=== PATIENT | female | born 1970 | race African-American/Black ===

== ENCOUNTER 2019-04-09 18:34 | Inpatient (IN) ==
[2019-04-09] MEDS ORDERED: ASPIRIN 325 MG TABLET PO STA (18:52)
[2019-04-09] MEDS ORDERED: NITROGLYCERIN 2% OINT 1 INCH/GM PACK TOP STA (18:52)
[2019-04-09] MEDS ORDERED: ONDANSETRON 4 MG/2 ML VIAL IV STA (18:52)
[2019-04-09] MEDS ORDERED: ALUM/MAG/SIMETH/LIDO VISC 1:1 30 ML BOTTLE PO STA (18:52)
[2019-04-09 19:20] LABS: Basophils % 0.4 % (0.0-0.8); Eosinophils % 0.4 % (0.00-10.9); Hematocrit 43.7 VOL% (35.7-47.0); Hemoglobin 14.4 GM/DL (12.0-16.0); Immature Granulocytes % 0.3 %; Immature Granulocytes Absolute 0.03 #; Lymphocytes # 3.1 10*3/uL (1.4-4.0); Mean Corpuscular Volume 85.5 FL (87-102); Mean Platelet Volume 12.2 FL (9.6-12.0); Monocytes % 6.3 % (1.7-12.7); Neutrophils % 58.6 % (38.7-73.9); Platelet Count 260 T/CUMM (130-400); Red Blood Count 5.11 MC/CUMM (3.8-5.5); Red Cell Distribution Width 11.8 % (9.3-17.3)
[2019-04-09 19:31] LABS: PT Patient Result 10.7 SECS
[2019-04-09 19:41] LABS: Alanine Aminotransferase 48 U/L (13-56); Albumin 3.5 G/DL (3.4-5.0); Alkaline Phosphatase 102 U/L (45-117); Aspartate Amino Transferase 29 U/L (0-37); Bilirubin,Total < 0.39 MG/DL (0.2-1.0); Blood Urea Nitrogen 11 MG/DL (7-18); Calcium 9.4 MG/DL (8.5-10.1); Glucose 464 MG/DL (74-106); Osmolality,Calculated 291.8 MOS/KG (273-304); Total Protein 6.5 G/DL (6.4-8.3)
[2019-04-09 19:48] LABS: Apearance,Urine CLEAR (Clear); Bilirubin,Urine Negative (Negative); Blood, Urine Small mg/dL (Negative); Glucose,Urine (UA) >=500 mg/dL (Negative); Ketones,Urine 5 mg/dL (Negative); Mucus,Urine Occasional /LPF (Occasional); Nitrite,Urine Negative (Negative); Protein,Urine Negative; RBC,Urine 2 /HPF (0-4); Squamous Epithelial Cell,Urine Occasional /HPF (0-10); Urine Color Yellow (Yellow); Urine Specific Gravity 1.037 (1.001-1.035); Urine Urobilinogen < 2.0 EU/DL (0.2-1.0); WBC,Urine 3 /HPF (0-6)
[2019-04-09] MEDS ORDERED: INSULIN REGULAR 100 UNIT/ML IV STA (19:59)
[2019-04-09] MEDS ORDERED: ENOXAPARIN 100 MG/ML SYRINGE SUBCUT STA (19:59)
[2019-04-09] MEDS ORDERED: METOPROLOL TARTRATE 25 MG TABLET PO STA (19:59)
[2019-04-09] MEDS ORDERED: MORPHINE 4 MG/1 ML VIAL IV PRN (22:16)
[2019-04-09] MEDS ORDERED: SODIUM CHLORIDE 0.9% 1,000 ML IV SCH (22:16)
[2019-04-09] MEDS ORDERED: ONDANSETRON 4 MG/2 ML VIAL IV PRN (22:16)
[2019-04-09] MEDS ORDERED: ZALEPLON 5 MG CAPSULE PO PRN (22:16)
[2019-04-09] MEDS ORDERED: DEXTROSE 50% 25 GM/50 ML VIAL IV PRN (22:16)
[2019-04-09] MEDS ORDERED: GLUCAGON 1 MG VIAL IM PRN (22:16)
[2019-04-09] MEDS ORDERED: BISACODYL 5 MG TABLET PO PRN (22:16)
[2019-04-09] MEDS ORDERED: NITROGLYCERIN SL 0.4 MG TABLET SL PRN (22:16)
[2019-04-09] MEDS: ONDANSETRON 4 MG/2 ML VIAL IV PRN (23:34)
[2019-04-10] MEDS: INSULIN REGULAR 100 UNIT/ML SUBCUT SCH ×4 (00:35→17:02)
[2019-04-10 01:02] LABS: Basophils % 0.2 % (0.0-0.8); Eosinophils % 0.2 % (0.00-10.9); Hematocrit 37.6 VOL% (35.7-47.0); Hemoglobin 12.5 GM/DL (12.0-16.0); Immature Granulocytes % 0.3 %; Immature Granulocytes Absolute 0.03 #; Lymphocytes # 2.9 10*3/uL (1.4-4.0); Lymphocytes % 30.5 % (21.3-54.2); Mean Corpuscular HGB Conc 33.2 GM/DL (32-36); Mean Corpuscular Volume 85.6 FL (87-102); Mean Platelet Volume 12.5 FL (9.6-12.0); Monocytes % 6.7 % (1.7-12.7); Neutrophils % 62.1 % (38.7-73.9); Platelet Count 237 T/CUMM (130-400); Red Blood Count 4.39 MC/CUMM (3.8-5.5); Red Cell Distribution Width 11.8 % (9.3-17.3); White Blood Count 9.4 T/CUMM (4-12)
[2019-04-10] MEDS ORDERED: PNEUMOCOCCAL VACCINE (23 VALENT) 0.5 ML VIAL IM ONE (01:06)
[2019-04-10 01:58] LABS: Calcium 8.4 MG/DL (8.5-10.1); Osmolality,Calculated 293.5 MOS/KG (273-304); Risk Ratio 4.13; Thyroid Stimulating Hormone 1.68 uIU/ml (0.358-3.74); VLDL CHOLESTEROL 43.4 MG/DL
[2019-04-10 08:36] LABS: Troponin I 0.87 NG/ML (0.00-0.045)
[2019-04-10] MEDS: ENOXAPARIN 100 MG/ML SYRINGE SUBCUT SCH ×2 (09:37→20:28)
[2019-04-10] MEDS: ASPIRIN EC 81 MG TABLET PO SCH (09:37)
[2019-04-10] MEDS ORDERED: POTASSIUM CHLORIDE RIDER 10 MEQ in PREMIX 1 EACH IV PRN (10:23)
[2019-04-10] MEDS ORDERED: diphenhydrAMINE CAP 25 MG CAPSULE PO ONE (10:23)
[2019-04-10] MEDS ORDERED: MAGNESIUM SULF RIDER 2 GM in PREMIX 1 EACH IV PRN (10:23)
[2019-04-10] MEDS ORDERED: DIAZEPAM 5 MG TABLET PO ONE (10:23)
[2019-04-10] MEDS ORDERED: HEPARIN/NACL 0.9% 2 UNITS/ML 1,000 ML IV ONE (10:30)
[2019-04-10] MEDS ORDERED: LIDOCAINE 1% 20 ML VIAL ONE (10:30)
[2019-04-10] MEDS ORDERED: NITROGLYCERIN DRIP 0 MG/0 ML BOTTLE IV ONE (10:30)
[2019-04-10] MEDS ORDERED: VERAPAMIL 5 MG/2 ML VIAL ONE ×2 (10:30→11:10)
[2019-04-10] MEDS ORDERED: HYDROmorphone 2 MG/1 ML VIAL ONE (11:07)
[2019-04-10] MEDS ORDERED: MIDAZOLAM 2 MG/2 ML VIAL ONE (11:07)
[2019-04-10] MEDS ORDERED: NITROGLYCERIN DRIP 50 MG/250 ML BOTTLE IV ONE (11:10)
[2019-04-10] MEDS ORDERED: DEXTROSE 10% 250 ML BAG IV PRN (11:21)
[2019-04-10] MEDS: ONDANSETRON 4 MG/2 ML VIAL IV PRN (12:34)
[2019-04-10] MEDS: ROSUVASTATIN 20 MG TABLET PO SCH (20:28)
[2019-04-10] MEDS ORDERED: ACETAMINOPHEN 325 MG TABLET PO PRN (23:43)
[2019-04-10] MEDS ORDERED: ACETAMINOPHEN 500 MG TABLET PO ONE (23:43)
[2019-04-10] MEDS ORDERED: ACETAMINOPHEN 500 MG TABLET ONE (23:47)
[2019-04-11] MEDS: INSULIN REGULAR 100 UNIT/ML SUBCUT SCH ×4 (00:52→17:22)
[2019-04-11 05:33] LABS: Basophils % 0.4 % (0.0-0.8); Eosinophils # 0.1 10*3/uL (0.0-0.87); Eosinophils % 0.9 % (0.00-10.9); Hemoglobin 11.1 GM/DL (12.0-16.0); Immature Granulocytes % 0.2 %; Immature Granulocytes Absolute 0.02 #; Lymphocytes # 4.5 10*3/uL (1.4-4.0); Lymphocytes % 54.3 % (21.3-54.2); Mean Corpuscular HGB Conc 32.6 GM/DL (32-36); Mean Corpuscular Volume 87.6 FL (87-102); Mean Platelet Volume 12.9 FL (9.6-12.0); Monocytes % 5.2 % (1.7-12.7); Platelet Count 172 T/CUMM (130-400); Red Blood Count 3.88 MC/CUMM (3.8-5.5); Red Cell Distribution Width 11.9 % (9.3-17.3); White Blood Count 8.2 T/CUMM (4-12)
[2019-04-11 06:03] LABS: Calcium 8.1 MG/DL (8.5-10.1); Osmolality,Calculated 289.8 MOS/KG (273-304)
[2019-04-11] MEDS: ASPIRIN EC 81 MG TABLET PO SCH (08:43)
[2019-04-11] MEDS: ENOXAPARIN 100 MG/ML SYRINGE SUBCUT SCH (08:43)
[2019-04-11] MEDS ORDERED: SPIRONOLACTONE 25 MG TABLET PO SCH (11:42)
[2019-04-11] MEDS: CARVEDILOL 3.125 MG TABLET PO SCH ×2 (11:55→20:49)
[2019-04-11] MEDS: ROSUVASTATIN 20 MG TABLET PO SCH (20:49)
[2019-04-12] MEDS: INSULIN REGULAR 100 UNIT/ML SUBCUT SCH ×2 (01:10→06:13)
[2019-04-12] MEDS ORDERED: SPIRONOLACTONE 50 MG TABLET PO SCH (05:03)
[2019-04-12 07:58] VITALS: BP 122/64
[2019-04-12] MEDS ORDERED: metFORMIN 500 MG TABLET PO SCH (08:00)
[2019-04-12] MEDS: ASPIRIN EC 81 MG TABLET PO SCH (08:43)
[2019-04-12] MEDS: CARVEDILOL 3.125 MG TABLET PO SCH (08:43)
[2019-04-12] MEDS ORDERED: LOSARTAN 25 MG TABLET PO SCH (09:00)
[2019-04-12] MEDS ORDERED: ENOXAPARIN 40 MG/0.4 ML SYRINGE SUBCUT SCH (09:00)
== END 2019-04-12 11:30 | disposition home or self-care (01) | DRG 281 ==
LOC: N.EDINP 18:34 → N.ED 18:34 → N.TELES 21:21
PROVIDERS: ADMIT Internal Medicine; ATTEND Internal Medicine

== ENCOUNTER 2022-01-07 10:07 | Observation (INO) ==
[2022-01-07] MEDS ORDERED: NITROGLYCERIN SL 0.4 MG TABLET SL PRN (10:33)
[2022-01-07] MEDS ORDERED: ASPIRIN 325 MG TABLET PO STA (10:33)
[2022-01-07] MEDS ORDERED: NITROGLYCERIN SL 0.4 MG TABLET SL ONE (10:39)
[2022-01-07 10:45] LABS: Basophils % 0.6 % (0.0-0.8); Eosinophils # 0.1 10*3/uL (0.0-0.87); Eosinophils % 1.1 % (0.00-10.9); Hematocrit 41.2 VOL% (35.7-47.0); Hemoglobin 13.2 GM/DL (12.0-16.0); Immature Granulocytes % 0.4 %; Immature Granulocytes Absolute 0.02 #; Lymphocytes % 38.3 % (21.3-54.2); Mean Corpuscular Volume 88.6 FL (87-102); Monocytes % 7.3 % (1.7-12.7); Neutrophils % 52.3 % (38.7-73.9); Platelet Count 257 T/CUMM (130-400); Red Blood Count 4.65 MC/CUMM (3.8-5.5); Red Cell Distribution Width 12.4 % (9.3-17.3); White Blood Count 5.2 T/CUMM (4-12)
[2022-01-07 11:06] LABS: Alanine Aminotransferase 51 U/L (13-56); Albumin 3.6 G/DL (3.4-5.0); Alkaline Phosphatase 130 U/L (45-117); Aspartate Amino Transferase 27 U/L (0-37); Bilirubin,Total < 0.39 MG/DL (0.20-1.00); Blood Urea Nitrogen 8 MG/DL (7-18); Calcium 9.4 MG/DL (8.5-10.1); Carbon Dioxide 28 MMOL/L (21-32); Estimated Glom Filtration Rate 138 ML/MIN; Glucose 204 MG/DL (74-106); Osmolality,Calculated 282.4 MOS/KG (273-304); Potassium 3.7 MMOL/L (3.5-5.1); Sodium 140 MMOL/L (136-145); Total Protein 7.4 G/DL (6.4-8.2)
[2022-01-07] MEDS ORDERED: ONDANSETRON 4 MG/2 ML VIAL IV PRN (12:00)
[2022-01-07] MEDS ORDERED: ENOXAPARIN 100 MG/ML SYRINGE SUBCUT ONE (12:00)
[2022-01-07] MEDS ORDERED: GLUCAGON 1 MG VIAL IM PRN (12:00)
[2022-01-07] MEDS ORDERED: DEXTROSE 10% 250 ML BAG IV PRN (12:12)
[2022-01-07] MEDS: carvediloL 3.125 MG TABLET PO SCH ×2 (13:55→20:53)
[2022-01-07] MEDS: PANTOPRAZOLE 40 MG TABLET PO SCH (13:56)
[2022-01-07] MEDS ORDERED: INSULIN LISPRO 100 UNIT/ML SUBCUT SCH (17:00)
[2022-01-07] MEDS: INSULIN LISPRO 100 UNIT/ML SUBCUT SCH ×2 (17:46→20:51)
[2022-01-07 19:14] LABS: Barbiturates Screen,Urine Negative (Negative); Benzodiazepines Screen,Urine Positive (Negative); Cannabinoid Screen,Urine Negative (Negative); Opiate Screen,Urine Negative (Negative); Phencyclidine Screen,Urine Negative (Negative)
[2022-01-07] MEDS ORDERED: ROSUVASTATIN 10 MG TABLET PO SCH (21:00)
[2022-01-08 07:46] LABS: Basophils % 0.7 % (0.0-0.8); Eosinophils # 0.1 10*3/uL (0.0-0.87); Eosinophils % 1.5 % (0.00-10.9); Hematocrit 37.8 VOL% (35.7-47.0); Hemoglobin 12.1 GM/DL (12.0-16.0); Immature Granulocytes % 0.2 %; Immature Granulocytes Absolute 0.01 #; Lymphocytes # 2.1 10*3/uL (1.4-4.0); Lymphocytes % 46.9 % (21.3-54.2); Mean Corpuscular Volume 90.2 FL (87-102); Mean Platelet Volume 12.3 FL (9.6-12.0); Monocytes % 9.7 % (1.7-12.7); Platelet Count 232 T/CUMM (130-400); Red Blood Count 4.19 MC/CUMM (3.8-5.5); Red Cell Distribution Width 12.5 % (9.3-17.3); White Blood Count 4.5 T/CUMM (4-12)
[2022-01-08 07:50] LABS: Risk Ratio 5.27; VLDL Cholesterol 60.6 MG/DL
[2022-01-08 08:36] VITALS: BP 108/74
[2022-01-08] MEDS ORDERED: lisinopriL 2.5 MG TABLET PO SCH (09:00)
[2022-01-08] MEDS: PANTOPRAZOLE 40 MG TABLET PO SCH (09:04)
[2022-01-08] MEDS: carvediloL 3.125 MG TABLET PO SCH (09:04)
[2022-01-08] MEDS: INSULIN LISPRO 100 UNIT/ML SUBCUT SCH (09:04)
== END 2022-01-08 10:50 | disposition home or self-care (01) ==
LOC: N.EDINP 10:07 → N.ED 10:07 → N.EDINP 15:07 → N.TELEN 15:40
PROVIDERS: ADMIT Emergency Medicine; ATTEND Emergency Medicine